=== PATIENT | male | born 1955 | race Caucasian/White ===

== ENCOUNTER 2020-01-01 14:16 | Observation (INO) | payer OTHER, SELFPAY ==
[2020-01-01] VITALS (30 sets, daily range): BP systolic 131–211; BP diastolic 82–109; PULSE 59–104; RESP 12–21; TEMP 36–37.2; O2SAT 93–100; BMI 33.6
--- NOTE | ~2020-01-01 | CT_ITS ---
EXAMINATION: CT chest abdomen pelvis wo con DATE: 01/01/2020 19:26 INDICATION: Epigastric abdominal pain. Chest pain. TECHNIQUE: Computed tomography (CT) of the chest, abdomen, and pelvis was performed without intraveno us contrast. Automated exposure control and iterative reconstruction technique were employed. The dos e-length product was 1341.71 mGy-cm. COMPARISON: None FINDINGS: CHEST CT: There is mild scarring at the lung apices. There is mild bronchiectasis and scarring in anterior segm ent right upper lobe. There is mild atelectasis bilaterally. No pleural effusion. The heart size is n ormal. There are coronary artery calcifications. No pericardial effusion. There is mild thoracic spon dylosis. ABDOMEN/PELVIS CT: There is diffuse hepatic steatosis. There are gallstones in the gallbladder. There is a gallstone in the cystic duct. The gallbladder is normal in size. There is mild fat stranding adjacent to the gallb ladder, consistent with acute cholecystitis. The common duct is dilated to 10 mm. There are calcifica tions in the pancreas, consistent with chronic pancreatitis. The spleen, adrenal glands, and right ki dney are normal. There are is a 2 mm stone in left kidney. There is diverticulosis of the colon witho ut evidence of diverticulitis. There are no dilated loops of bowel. The appendix is normal. There are no pathologically enlarged lymph nodes. There is no free intraperitoneal fluid. There is asymmetric fat in left inguinal canal that may be a small hernia. There is mild lumbar spondylosis. IMPRESSION: 1. Acute cholecystitis. 2. Mildly dilated common duct. Reviewed, dictated and finalized at location A.
--- NOTE | ~2020-01-01 | US_ITS ---
US right upper quadrant INDICATION: Epigastric pain PROCEDURE: Realtime right upper abdominal ultrasound. COMPARISON: No prior studies for comparison. FINDINGS: The pancreas is normal without focal mass or pancreatic ductal dilation. Hepatic steatosis . There is normal directional flow in the portal vein. There are gallstones with gallbladder sludge and pericholecystic fluid. Gallbladder wall is thickened measuring 4.4 mm. Common bile duct measures 7 mm. Positive sonographic Anders's sign. IMPRESSION: 1: Constellation of findings compatible with acute cholecystitis. 2: Hepatic steatosis. Reviewed, dictated and finalized at location B.
--- NOTE | ~2020-01-01 | XR_ITS ---
EXAMINATION: XR chest 2V DATE: 01/01/2020 14:40 INDICATION: Chest pain. TECHNIQUE: Frontal and lateral views of the chest were obtained. COMPARISON: None. FINDINGS: There is mild scarring at the lung apices. There are airspace opacities in lingula. No pleu ral effusion or pneumothorax. The heart size is normal. There is a prominent right paracardial fat pa d. IMPRESSION: 1. Airspace opacities in lingula, consistent with atelectasis versus pneumonia. 2. Mild scarring at the lung apices. Reviewed, dictated and finalized at location A.
--- NOTE | 2020-01-01 14:24 | ECG_ITS ---
Measurements Intervals [place] Rate: 77 P: 52 NV: 154 QRS: 101 QRSD: 94 T: 33 QT: 372 QTc: 422 Interpretive Statements SINUS RHYTHM RIGHT AXIS DEVIATION DELAYED PRECORDIAL R/S TRANSITION BASELINE ARTIFACT- I, III, AVR, AVL, AVF, V1-V5 BORDERLINE ECG Electronically Signed On 01-01-2020 15:44:43 CDT by Haresh Maza D.O.
[2020-01-01 14:39] LABS: Basophils Percent Auto 0.6 % (0.2-1.2); Eosinophils Absolute Auto 0.1 K/mm3 (0-0.3); Eosinophils Percent Auto 1.9 % (0-4.4); Hematocrit 48.6 % (42.0-52.0); Hemoglobin 15.9 g/dL (14.0-18.0); Immature Granulocyte Absolute 0.07 K/mm3 (0.00-0.031); Lymphocytes Absolute Auto 2.28 K/mm3 (0.9-3.2); Lymphocytes Percent Auto 33.8 % (18.3-44.2); Mean Corpuscular HGB Conc 32.7 g/dl (32-36); Mean Corpuscular Hemoglobin 29.4 pg (26-34); Mean Platelet Volume 11.8 fl (7.4-10.4); Monocytes Absolute Auto 0.9 K/mm3 (0.1-0.6); Monocytes Percent Auto 12.8 % (2.6-8.5); Neutrophils Absolute Auto 3.4 K/mm3 (1.3-6.7); Neutrophils Percent Auto 49.9 % (45.5-73.1); Platelet Count Result 144 k/mm3 (150-375); Red Cell Distribution Width 14.5 % (11.5-14.5); White Blood Count 6.7 K/mm3 (4.5-10.0)
[2020-01-01] MEDS: NITROGLYCERIN SL 0.4 MG TABLET SUBLINGUAL ×3 (14:40→17:36)
--- NOTE | 2020-01-01 14:44 | ED.CHESTPAIN ---
HPI - Chest Pain General Chief Complaint: Chest Pain Stated Complaint: cp Time Seen by Provider: 01/01/20 14:25 History of Present Illness HPI narrative: Patient is a 64-year-old male who presents the ER with central chest pain. Feels like a throbbing pressure the size of a softball in the center of his chest. It is increased since 10 AM when it began. No nausea/vomiting/shortness of breath. No diaphoresis. No previous coronary disease. Patient does have history of previous CVA as well as aneurysm clipping. He had a carotid endarterectomy as well. Stopped his Plavix 1 month ago I instructed from his physician. No aggravating or alleviating factors that he is noted for the chest pain. Unsure if there is no exertional component as he is chose not to get up and move around. Related Data Home Medications Medication Instructions Recorded Confirmed Aspirin Low Dose 01/01/20 [place]-3 Fish Oil 01/01/20 lisinopril-hydrochlorothiazide tablet 01/01/20 metformin mg 01/01/20 rosuvastatin mg 01/01/20 Allergies Allergy/AdvReac Type Severity Reaction Status Date / Time Kkjibbf-Gkh-Hvt Reductase AdvReac Cramping Verified 01/01/20 14:40 Inhibitor of the Muscles Review of Systems Review of Systems: All systems reviewed & are unremarkable except as noted in HPI and below Constitutional: Constitutional: Denies chills, Denies fever(s) and Denies weakness ENT: Denies nasal congestion and Denies sore throat Cardiovascular: Cardiovascular: Reports chest pain, Denies rapid heart rate and Denies radiating jaw, neck or arm pain Respiratory: Respiratory: Denies cough, Denies dyspnea and Denies wheezing Gastrointestinal: Gastrointestinal: Denies abdominal pain, Denies diarrhea, Denies nausea and Denies vomiting PMFSH Past Medical History Medical History (Updated 01/01/20 @ 18:30 by Erik Flores MD) Brain aneurysm CVA (cerebral vascular accident) Hypertension Surgical History Surgical History (Updated 01/01/20 @ 14:47 by Erik Flores MD) H/O carotid endarterectomy Social History Social History (Updated 01/01/20 @ 14:47 by Erik Flores MD) Smoking status: Former smoker Gender identity (if verbalized by the patient): Male Exam Narrative: Exam Narrative: GENERAL: Well-appearing, well-nourished, and in no acute distress. HEAD: Normocephalic, atraumatic. ENT: Mucous membranes moist. CHEST: Clear to auscultation. No respiratory distress. HEART: Regular rate and rhythm. Normal peripheral pulses. ABDOMEN: Soft, nontender, nondistended. EXTREMITIES: Normal range of motion. No edema. SKIN: Warm, dry, no rash. NEURO: Alert and oriented x3. PSYCH: Normal mood and affect. Course Course Emergency Course: Chest pain blood pressure improved with nitroglycerin x3. Admit to the hospitalist service. Vital Signs Vital signs: Vital Signs Pulse Rate 85 01/01/20 14:25 Respiratory Rate 18 01/01/20 14:25 Pulse Oximetry 99 01/01/20 14:25 Temperature 97.2 F L 01/01/20 17:15 Pulse Rate 68 01/01/20 17:15 Respiratory Rate 20 01/01/20 17:15 Blood Pressure 177/84 H 01/01/20 17:15 Pulse Oximetry 100 01/01/20 17:15 MDM - Chest Pain Lab Data Result diagrams: 01/01/20 14:29 01/01/20 14:29 Labs: Lab Results 01/01/20 01/01/20 01/01/20 Range/Units 14:29 14:29 14:29 WBC 6.7 (4.5-10.0) K/mm3 RBC 5.40 (4.6-6.20) M/mm3 Hgb 15.9 (14.0-18.0) g/dL Hct 48.6 (42.0-52.0) % MCV 90.0 (80-100) fl MCH 29.4 (26-34) pg MCHC 32.7 (32-36) g/dl RDW 14.5 (11.5-14.5) % Plt Count 144 L (150-375) k/mm3 MPV 11.8 H (7.4-10.4) fl Immature Gran % (Auto) 1.0 H (0-0.5) % Neut % (Auto) 49.9 (45.5-73.1) % Lymph % (Auto) 33.8 (18.3-44.2) % [place] % (Auto) 12.8 H (2.6-8.5) % Eos % (Auto) 1.9 (0-4.4) % Baso % (Auto) 0.6 (0.2-1.2) % Lymph # (Auto) 2.28 (0.9-3.2) K/mm3 [place] # (Auto)
[2020-01-01 14:50] LABS: Anion Gap 9 mmol/L (8-16); Blood Urea Nitrogen 13 mg/dL (9-20); Calcium 9.6 mg/dL (8.4-10.2); Carbon Dioxide 30 mmol/L (22-30); Chloride 98 mmol/L (98-107); Estimated CRCL calculation 82 ml/min; Estimated Glomerular Filt Rate > 60; Glucose 142 mg/dL (75-110); INR 0.9; Potassium 4.3 mmol/L (3.4-5.0); Prothrombin Time 12.3 Seconds (11.1-14.7); Sodium 137 mmol/L (137-145)
[2020-01-01 14:51] LABS: Partial Thromboplastin Time 24.7 SECONDS (22.3-36.8)
[2020-01-01 15:02] LABS: Troponin I < 0.012 ng/mL (0.000-0.034)
--- NOTE | 2020-01-01 15:30 | PC.NURSE ---
First nitro given 1440 chest pain went from 9 to a 5 1445 second nitro given, chest pain went from 5 to a 3 1450 third nitro given, chest pain about a 3, blood pressure improved
--- NOTE | 2020-01-01 16:52 | ADMGEN ---
This patient, Robert Virk, was admitted to IMU Room 211-01. Patient/family oriented to hospital policies and general routines including ID bracelet, bed and alarms, visiting hours, pain management, procedures, bathroom and other care routines, personal items, smoking policy, room service/diet, and visiting hours. Valuables list has been completed. Information on how to activate the Rapid Response Team has been discussed. Patient/Family are encouraged to report perceived risks to care and to ask questions if they do not understand what they are told or what they should do.
[2020-01-01] MEDS: MORPHINE SULFATE 4 MG/ML INJ IV PUSH (18:07)
[2020-01-01 18:33] LABS: Troponin I < 0.012 ng/mL (0.000-0.034)
--- NOTE | 2020-01-01 19:13 | PM.IMHP ---
H&P: HPI History of Present Illness Date/Time: 01/01/20 19:13 Chief complaint: chest pain Narrative: Robert Virk is a 64 year old male Who has a history of having cerebral aneurysm which 1 of the 3 has been repaired. The other 2 did not require any surgical intervention. The patient has also had a carotid endarterectomy and had a CVA. He also is diabetic and hypertensive. 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 They want to go somewhere local. The patient does have severe acid reflux and typically has pain midsternal whenever he has of bout of acid reflux but this was different today. He had a an area that was substernal discomfort but it went across his chest. The patient had not been belching and he tried to take some Tums because he thought that this might be acid reflux but that did not seem to help. He also took his Prilosec thinking that would help. But it did not. His chest pain started around 10:00 a.m. this morning. He also ate some food and thinking that it would help but it did not help. He has a localized centralized lower sternal chest pain that he stated did come across his chest on both sides. Did not radiate up his neck or down his arms. He was not short of breath. He did not have any fever chills or cough. He said his last cardiac catheterization was about 10 years ago and was clear. Patient cannot tolerate statins. He has muscle cramps his legs when he takes statin so he has not been taking it. Patient had no diaphoresis. He had been on Plavix but stopped taking it about 1 month ago. Patient's troponins are negative x2. Chest x-ray was read as airspace opacities in lingular consistent with atelectasis versus pneumonia. Mild scarring at the lung apex. Platelets are 144. Glucose was noted to be 142. Review of Systems Review of Systems: All systems reviewed & are unremarkable except as noted in HPI and below Constitutional: Constitutional: Reports as per HPI and Reports no additional constitutional complaints Eyes: Eyes: Reports as per HPI and Reports no additional eye complaints ENT: Reports system reviewed and no additional complaints, except as documented and Reports Normal hearing present Cardiovascular: Cardiovascular: Reports no additional cardiovascular complaints Respiratory: Respiratory: Reports no additional respiratory complaints and Reports no additional respiratory complaints Gastrointestinal: Gastrointestinal: Reports as per HPI and Reports no additional gastrointestinal complaints Musculoskeletal: Musculoskeletal: Reports no additional musculoskeletal complaints Integumentary/Breasts: Skin/Breast: Reports system reviewed and no additional complaints, except as docu and Reports as per HPI Neurologic: Reports system reviewed and no additional complaints, except as documented, Reports as per HPI and Reports Normal hearing present Psychiatric: Psychiatric: Reports no additional psychiatric complaints and Reports as per HPI Endocrine: Endocrine: Reports no additional endocrine complaints Hematologic/Lymphatic: Hematologic/Lymphatic: Reports no additional hematologic/lymphatic complaints Allergic/Immunologic: Allergic/Immunologic: Reports no additional allergic/immunologic complaints [facility] Past Medical History Medical History (Updated 01/01/20 @ 19:20 by Rafaela Felipe NP) Brain aneurysm x3 but only 1 needed surgical intervention that was performed at [place]. CVA (cerebral vascular accident) DM2 (diabetes mellitus, type 2) GERD with esophagitis Hyperlipidemia Hypertension Surgical History Surgical History (Updated 01/01/20 @ 19:20 by Rafaela Felipe NP) H/O carotid endarterectomy S/P aneurysm repair cerebral Family History Family History Mother Emphysema of lung Acute myocardial infarction Father Cancer Sibling Acute myocardial infarction brother Ca
[2020-01-01] MEDS: BELLADONNA ALK/PHENOB ELIX 10 ML, MAG HYDROX/ALUMINUM HYD/SIMETH 30 ML, LIDOCAINE HCL 2... PO (19:15)
[2020-01-01 20:52] LABS: Glucose Point of Care 123 (65-105)
[2020-01-01] MEDS: FAMOTIDINE 20 MG/2 ML VIAL IV PUSH (21:33)
[2020-01-01 21:45] LABS: Troponin I < 0.012 ng/mL (0.000-0.034)
[2020-01-02] VITALS (13 sets, daily range): BP systolic 124–154; BP diastolic 74–84; PULSE 65–118; RESP 16–20; TEMP 36.1–36.8; O2SAT 94–99
[2020-01-02 05:19] LABS: Basophils Absolute Auto 0.1 K/mm3 (0.0-0.1); Basophils Percent Auto 0.7 % (0.2-1.2); Eosinophils Absolute Auto 0.1 K/mm3 (0-0.3); Eosinophils Percent Auto 1.3 % (0-4.4); Hematocrit 46.2 % (42.0-52.0); Hemoglobin 15.4 g/dL (14.0-18.0); Immature Granulocyte Absolute 0.03 K/mm3 (0.00-0.031); Immature Granulocyte Percent A 0.4 % (0-0.5); Immature Platelet Fraction Pct 6.4 % (0.9-11.2); Lymphocytes Absolute Auto 1.58 K/mm3 (0.9-3.2); Lymphocytes Percent Auto 21.3 % (18.3-44.2); Mean Corpuscular HGB Conc 33.3 g/dl (32-36); Mean Corpuscular Hemoglobin 29.3 pg (26-34); Mean Platelet Volume 11.3 fl (7.4-10.4); Monocytes Absolute Auto 0.9 K/mm3 (0.1-0.6); Monocytes Percent Auto 12.3 % (2.6-8.5); Neutrophils Absolute Auto 4.7 K/mm3 (1.3-6.7); Platelet Count Result 135 k/mm3 (150-375); Red Blood Count 5.25 M/mm3 (4.6-6.20); Red Cell Distribution Width 13.9 % (11.5-14.5); White Blood Count 7.4 K/mm3 (4.5-10.0)
[2020-01-02 05:26] LABS: Hemoglobin A1C 6.5 % (<5.7)
[2020-01-02 05:33] LABS: Alanine Aminotransferase 77 U/L (4-50); Albumin Level 4.2 g/dL (3.5-5.1); Alkaline Phosphatase 54 U/L (38-126); Anion Gap 7 mmol/L (8-16); Aspartate Amino Transferase 47 U/L (17-59); Bilirubin,Total 0.6 mg/dL (0.2-1.3); Blood Urea Nitrogen 10 mg/dL (9-20); Calcium 9.4 mg/dL (8.4-10.2); Carbon Dioxide 31 mmol/L (22-30); Chloride 97 mmol/L (98-107); Estimated CRCL calculation 92 ml/min; Estimated Glomerular Filt Rate > 60; Glucose 134 mg/dL (75-110); Lipase 55 U/L (23-300); Magnesium 1.6 mg/dL (1.6-2.3); Potassium 4.2 mmol/L (3.4-5.0); Sodium 135 mmol/L (137-145)
[2020-01-02 07:26] LABS: Free T4 Free Thyroxine Reflex 0.91 ng/dL (0.78-2.19)
[2020-01-02] MEDS: lisinopriL 10 MG TABLET BY MOUTH (08:07)
[2020-01-02] MEDS: ASPIRIN 81 MG ENTERIC TABLET BY MOUTH (08:07)
[2020-01-02] MEDS: hydroCHLOROthiazide 12.5 MG CAPSULE BY MOUTH (08:07)
[2020-01-02] MEDS: FAMOTIDINE 20 MG/2 ML VIAL IV PUSH ×2 (08:07→21:12)
[2020-01-02 08:09] LABS: Total Triiodothyronine (T3) 1.03 NG/ML (0.97-1.69)
[2020-01-02 08:31] LABS: Glucose Point of Care 140 (65-105)
--- NOTE | 2020-01-02 11:09 | PM.CNCAR ---
Assessment and Plan Additional Plan this is a 64-year-old man without previous history of coronary disease but a known history of peripheral vascular disease. He also has hypertension and presents with low substernal to mid epigastric pain. This symptoms were present yesterday altogether for about 13 hours. In the face of his his troponin levels remain normal showing no evidence of acute myocardial injury. It seems therefore unlikely that these symptoms are indicative of an acute coronary syndrome. He does have interesting concerning findings on his abdominal ultrasound suggesting that he has evidence of cholecystitis. Presumably a surgical consultation is being considered. At this point I do not have any specific cardiac recommendations to make I do not think he needs an ischemia workup at this point Zeyad Graham MD [facility] History of Present Illness History of Present Illness Consult date/time: Date of service:01/02/20 11:09 Consult reason: chest pain Reason For Visit: chest pain Narrative: This is a 64-year-old man I am seeing at the request of the hospitalist because he was admitted last evening after being seen in the emergency room with some chest pain. The patient describes a low substernal to mid epigastric pain that he feels like a sense of pressure or a bubble in his epigastrium that began yesterday morning it was fairly mild when it began. He thought he was probably having symptoms of esophageal reflux which he says he is known to have and thought it might get better if he ate a meal. In rather when he ate a meal it seemed to aggravate the symptoms after a couple of hours and then he was discussing this with his and he decided he would come into the emergency room because there is a history of significant coronary disease in his mother and his brother who at a premature age of myocardial infarction before getting to the hospital. In the emergency room his electrocardiogram did not show any evidence of acute injury. His troponin levels were negative and he was admitted for observation and management. Altogether the pain lasted for about 13 hours before it faded away yesterday on its own. The patient's troponin levels are negative x3 sets. He offers no complaints currently and feels well. The patient is not known to have any coronary disease prior to this. He has undergone a coronary angiogram at [facility] he says it has been at least 6-7 years ago and he was told that that was normal at that time. He does have a history of peripheral as vascular disease having undergone a carotid endarterectomy several years ago. He also appears to have had a history of a CVA with a cerebral aneurysm that was treated at [facility] percutaneously in November of 2018. I do not have the details of those records available to me at the time of this dictation. In this setting he is being seen in consultation. He did have a abdominal ultrasound of the right upper quadrant this morning that is reported as showing a constellation of findings compatible with acute cholecystitis with evidence of multiple gallbladder stones and evidence of gallbladder inflammation. He states his physicians at [facility] have told him of gallbladder stones in the past but up until now they have been asymptomatic. He states the residual that he has from his CVA is difficult, slow speech. When he originally presented last year ago with his CVA he states he could not speak at all most of his speech has recovered but it is not normal. Review of Systems Constitutional: Constitutional: Reports no additional constitutional complaints Eyes: Eyes: Reports no additional eye complaints ENT: Reports system reviewed and no additional complaints, except as documented Cardiovascular: Cardiovascular: Reports as per HPI and Reports chest pain Respiratory: Respiratory: Reports no additional respiratory complaints Gastrointestinal: Gastrointestinal: Reports as per HPI and Repo
[2020-01-02 12:35] LABS: Glucose Point of Care 309 (65-105)
[2020-01-02] MEDS: INSULIN ASPART (*BKC) 100 UNITS/ML SUB-Q (12:56)
--- NOTE | 2020-01-02 16:15 | PM.CNGS ---
Assessment and Plan Assessment and plan (1) Acute calculous cholecystitis: Code(s): K80.00 - Calculus of gallbladder with acute cholecystitis without obstruction Status: Acute Assessment and Plan: I have reviewed the CT and discussed the findings with the patient. He has evidence of acute calculous cholecystitis. His symptoms are slightly improved today, but with his history of type 2 diabetes, he is at risk for developing more complicated gallbladder issues. Discussed proceeding with surgery during this hospitalization verses being discharged and planning surgery electively. Ultimately I would recommend laparoscopic cholecystectomy, possible open. The patient would wish to proceed during this hospitalization due to some mild ongoing pain and risk of recurrent attacks. Will plan to proceed with laparoscopic cholecystectomy tomorrow. He will be made NPO after midnight. I have discussed the procedure as well as risks, benefits, and alternatives. Questions were answered. (2) DM2 (diabetes mellitus, type 2): Code(s): E11.9 - Type 2 diabetes mellitus without complications Status: Chronic (3) Hypertension: Code(s): I10 - Essential (primary) hypertension Status: Chronic (4) Adult BMI 33.0-33.9 kg/sq m: Code(s): Z68.33 - Body mass index (BMI) 33.0-33.9, adult Status: Acute History of Present Illness Consult details Consult date: 01/02/20 Reason for consult: abdominal pain Requesting physician: Allyson Vogt MD Narrative: This is a 64-year-old man who presented to the emergency department yesterday with substernal and epigastric pain. He began having pain yesterday when he woke up around 10:00 a.m.. He thought that it might be related to acid reflux or indigestion and tried to eat something to help with this. He ate a [employer] sausage egg and cheese sandwich and pain continued to worsen. Two nights ago before the pain started, he had eaten sloppy Bam's and tater tots. He has never had pain like this before. He denied any fevers or chills and denied any change in bowel habits. A CT chest abdomen and pelvis was performed in the emergency department. This showed evidence of acute cholecystitis. He was admitted to rule out cardiac causes. He does have a history of peripheral vascular disease with a history of CVA and carotid artery stenosis. His troponin levels were normal and he showed no other abnormalities on telemetry. His blood pressure was significantly elevated at the time of admission but this has been treated. A gallbladder ultrasound was obtained this morning and this confirmed acute cholecystitis with cholelithiasis. His pain seemed to resolve by around 9:30 this morning. He still has some mild tenderness in the epigastric region but he states that this is nothing compared to how he felt yesterday. Review of Systems Review of Systems: All systems reviewed & are unremarkable except as noted in HPI and below Constitutional: Constitutional: Denies chills and Denies fever(s) Eyes: Eyes: Denies change in vision ENT: Denies hearing loss, Denies neck pain and Denies sore throat Cardiovascular: Cardiovascular: Denies chest pain and Denies dyspnea Respiratory: Respiratory: Denies cough, Denies dyspnea and Denies wheezing Gastrointestinal: Gastrointestinal: Reports as per HPI and Reports abdominal pain Genitourinary: Genitourinary: Denies hematuria and Denies dysuria Musculoskeletal: Musculoskeletal: Denies arthralgias, Denies joint swelling and Denies neck pain Allergic/Immunologic: Allergic/Immunologic: Denies wheezing [facility] Past Medical History Medical History (Updated 01/02/20 @ 16:25 by Ruslan Steele DO) Brain aneurysm x3 but only 1 needed surgical intervention that was performed at [place]. CVA (cerebral vascular accident) DM2 (diabetes mellitus, type 2) GERD with esophagitis Hyperlipidemia Hypertension Surgical History Surgical History (Updat
[2020-01-02 16:17] LABS: Glucose Point of Care 180 (65-105)
--- NOTE | 2020-01-02 18:13 | WPDANESEPP ---
Anes - Eval Pre Procedure Procedure: Operation Date: 01/03/20 12:00 Proposed Procedures p Laparoscopic Cholecystectomy - Ruslan Steele DO Date/Time: 01/02/20 18:13 Pre Op Diagnosis: Acute calculous cholecystitis Patient Data Age: 64 Gender: M Height: 5 ft 7 in Weight: 96.9 kg Last Vital Signs Temp 98 F 01/02/20 16:00 Pulse 105 H 01/02/20 16:00 Resp 16 01/02/20 16:00 BP 149/79 H 01/02/20 16:00 Pulse Ox 99 01/02/20 16:00 Allergies Allergy/AdvReac Type Severity Reaction Status Date / Time Pdezuyq-Iyp-Tzz Reductase AdvReac Cramping Verified 01/01/20 14:40 Inhibitor of the Muscles Home Medications Medication Instructions Recorded Confirmed Type Aspirin Low Dose 325 mg PO DAILY 01/01/20 01/01/20 History [place]-3 Fish Oil 300 mg PO DAILY 01/01/20 01/01/20 History Prilosec OTC 1 tablet PO PRN 01/01/20 History lisinopril-hydrochlorothiazide 1 tablet PO DAILY 01/01/20 01/01/20 History metformin 1,000 mg PO BID 01/01/20 01/01/20 History naproxen 500 mg PO PRN 01/01/20 History Laboratory Tests 01/01/20 01/01/20 01/01/20 17:45 20:31 20:35 WBC RBC Hgb Hct MCV MCH MCHC RDW Plt Count MPV Immature Gran % (Auto) Neut % (Auto) Lymph % (Auto) [place] % (Auto) Eos % (Auto) Baso % (Auto) Lymph # (Auto) [place] # (Auto) Eos # (Auto) Baso # (Auto) Abs Immat Gran (auto) Absolute Neuts (auto) Absolute Nucleated RBC Nucleated RBC % % Immature Plt Fraction Sodium Potassium Chloride Carbon Dioxide Anion Gap BUN Creatinine Estim Creat Clear Calc Estimated GFR Glucose POC Capillary Glucose 123 mg/dl H mg/dl (65-105) Hemoglobin A1c Calcium Magnesium Total Bilirubin AST ALT Alkaline Phosphatase Troponin I < 0.012 ng/mL ng/mL < 0.012 ng/mL ng/mL (0.000-0.034) (0.000-0.034) Total Protein Albumin Lipase TSH (Reflex) Free T4 Total T3 01/02/20 01/02/20 01/02/20 04:58 04:58 04:58 WBC 7.4 K/mm3 K/mm3 (4.5-10.0) RBC 5.25 M/mm3 M/mm3 (4.6-6.20) Hgb 15.4 g/dL g/dL (14.0-18.0) Hct 46.2 % % (42.0-52.0) MCV 88.0 fl fl (80-100) MCH 29.3 pg pg (26-34) MCHC 33.3 g/dl g/dl (32-36) RDW 13.9 % % (11.5-14.5) Plt Count 135 k/mm3 L k/mm3 (150-375) MPV 11.3 fl H fl (7.4-10.4) Immature Gran % (Auto) 0.4 % % (0-0.5) Neut % (Auto) 64.0 % % (45.5-73.1) Lymph % (Auto) 21.3 % % (18.3-44.2) [place] % (Auto) 12.3 % H % (2.6-8.5) Eos % (Auto) 1.3 % % (0-4.4) Baso % (Auto) 0.7 % % (0.2-1.2) Lymph # (Auto) 1.58 K/mm3 K/mm3 (0.9-3.2) [place] # (Auto) 0.9 K/mm3 H K/mm3 (0.1-0.6) Eos # (Auto) 0.1 K/mm3 K/mm3 (0-0.3) Baso # (Auto) 0.1 K/mm3 K/mm3 (0.0-0.1) Abs Immat Gran (auto) 0.03 K/mm3 K/mm3 (0.00-0.031) Absolute Neuts (auto) 4.7 K/mm3 K/mm3 (1.3-6.7) Absolute Nucleated RBC 0.0 K/mm3 K/mm3 (0.0-0.012) Nucleated RBC % 0.0 % % (0.0-0.2) % Immature Plt Fraction 6.4 % % (0.9-11.2) Sodium 135 mmol/L L mmol/L (137-145) Potassium 4.2 mmol/L mmol/L (3.4-5.0) Chloride 97 mmol/L L mmol/L (98-107) Carbon Dioxide 31 mmol/L H mmol/L (22-30) Anion Gap 7 mmol/L L mmol/L (8-16) BUN 10 m
--- NOTE | 2020-01-02 18:30 | PM.IMPN ---
Progress Note: A&P Assessment and Plan (1) Chest pain: Code(s): R07.9 - Chest pain, unspecified Status: Acute Assessment and Plan: troponins have been negative x2. His EKG was read as sinus rhythm. Patient stated his medical practitioners is in [place] but would allow a medical practitioners from here to see him. His midsternal discomfort. We have tried morphine and nitro and does not seem to relieve his discomfort has been constant since 10:00 a.m. this morning. Will try GI cocktail and we will do CT of the abdomen without contrast in the event that his troponin was elevated he would need to go to the research lab assistant I did now use any . Also do gallbladder ultrasound. And patient has a history of severe gastritis esophagitis and has taken a PPI on occasion. He tried Tums and a PPI and that did not help him. We will do a Pepcid IV. Continue with daily aspirin. 01/02/20 18:30 patient is 64-year-old male with history of vascular disease, cerebral aneurysm, and hypertension presented emergency department with a complaint chest pain epigastric patient had a 3 sets of cardiac enzymes which were negative, EKG there was no acute change, patient was seen by medical practitioners does not suspect acute coronary syndrome to further evaluate patient had abdominal ultrasound showed patient has acute cholecystitis patient is seen by surgery service and recommending cholecystectomy which is scheduled for tomorrow, his clinically stable still complains of epigastric pain but no nausea or vomiting fever, has any chest pain palpitation, his is present in room (2) DM2 (diabetes mellitus, type 2): Code(s): E11.9 - Type 2 diabetes mellitus without complications Status: Chronic Assessment and Plan: Hold his metformin for now sliding scale insulin and check A1c. (3) Hypertension: Code(s): I10 - Essential (primary) hypertension Status: Chronic Assessment and Plan: p.r.n. hydralazine. Continue with lisinopril and hydrochlorothiazide. The patient has had nitro patches and morphine and is only brought his blood pressure down Slightly. Patient could be having chest pain from hypertensive urgency. (4) GERD with esophagitis: Code(s): K21.0 - Gastro-esophageal reflux disease with esophagitis Status: Chronic Assessment and Plan: IV Pepcid after GI cocktail. (5) Hyperlipidemia: Code(s): E78.5 - Hyperlipidemia, unspecified Status: Chronic Assessment and Plan: The patient is intolerant to statins it causes him to have leg cramps. Subjective Date/time seen: 01/02/20 18:30 patient is 64-year-old male with history of vascular disease, cerebral aneurysm, and hypertension presented emergency department with a complaint chest pain epigastric patient had a 3 sets of cardiac enzymes which were negative, EKG there was no acute change, patient was seen by medical practitioners does not suspect acute coronary syndrome to further evaluate patient had abdominal ultrasound showed patient has acute cholecystitis patient is seen by surgery service and recommending cholecystectomy which is scheduled for tomorrow, his clinically stable still complains of epigastric pain but no nausea or vomiting fever, has any chest pain palpitation, his is present in room Review of Systems Review of Systems: All systems reviewed & are unremarkable except as noted in HPI and below Exam Narrative: Exam Narrative: moderately obese Const: General: no acute distress and uncomfortable HENMT: General nose exam: Normal nares present Eyes: General: appearance normal, both eyes and all related structures Sclera: sclerae normal Neck: Neck: supple Resp: Effort & Inspection: normal respiratory effort Auscultation: clear to auscultation bilaterally Cardio: Rate: regular rate Rhythm: regular rhythm GI: Auscultation: normal bowel sounds Other: patient is tender in epigastric right upper quadrant Skin: General ski
[2020-01-02 20:34] LABS: Glucose Point of Care 199 (65-105)
[2020-01-03] VITALS (17 sets, daily range): BP systolic 125–155; BP diastolic 57–95; PULSE 68–89; RESP 14–22; TEMP 35.9–36.7; O2SAT 91–99
[2020-01-03 04:54] LABS: Hematocrit 48.1 % (42.0-52.0); Hemoglobin 15.8 g/dL (14.0-18.0); Mean Corpuscular HGB Conc 32.8 g/dl (32-36); Mean Corpuscular Volume 88.4 fl (80-100); Mean Platelet Volume 11.5 fl (7.4-10.4); Platelet Count Result 144 k/mm3 (150-375); Red Blood Count 5.44 M/mm3 (4.6-6.20); Red Cell Distribution Width 14.2 % (11.5-14.5); White Blood Count 6.2 K/mm3 (4.5-10.0)
[2020-01-03 05:13] LABS: Alanine Aminotransferase 83 U/L (4-50); Albumin Level 4.3 g/dL (3.5-5.1); Alkaline Phosphatase 54 U/L (38-126); Anion Gap 9 mmol/L (8-16); Aspartate Amino Transferase 50 U/L (17-59); Bilirubin,Total 0.5 mg/dL (0.2-1.3); Blood Urea Nitrogen 16 mg/dL (9-20); CRP 3.6 mg/dL (<1.0); Calcium 9.3 mg/dL (8.4-10.2); Carbon Dioxide 29 mmol/L (22-30); Chloride 99 mmol/L (98-107); Estimated CRCL calculation 82 ml/min; Estimated Glomerular Filt Rate > 60; Glucose 143 mg/dL (75-110); Lipase 91 U/L (23-300); Potassium 4.2 mmol/L (3.4-5.0); Sodium 137 mmol/L (137-145)
[2020-01-03 08:31] LABS: Glucose Point of Care 129 (65-105)
[2020-01-03] MEDS: CHLORHEXIDINE GLUCONATE 4% SOL 120 ML BTL 1 APPLIC TOPICAL (08:54)
--- NOTE | 2020-01-03 12:27 | WPDANESEPPF ---
Anes - Initial Pre Proc Eval Procedure: Operation Date: 01/03/20 12:00 Proposed Procedures p Laparoscopic Cholecystectomy - Ruslan Steele DO Date/Time: 01/03/20 12:27 Surgeon: Allyson Vogt MD Pre Op Diagnosis: Acute calculous cholecystitis Patient Data Age: 64 Gender: M Height: 5 ft 7 in Weight: 94.3 kg Last Vital Signs Temp 96.7 F L 01/03/20 08:14 Pulse 73 01/03/20 10:00 Resp 22 H 01/03/20 08:14 BP 125/78 01/03/20 08:14 Pulse Ox 93 01/03/20 08:46 Allergies Allergy/AdvReac Type Severity Reaction Status Date / Time Dppjnpo-Ont-Upx Reductase AdvReac Cramping Verified 01/01/20 14:40 Inhibitor of the Muscles Home Medications Medication Instructions Recorded Confirmed Type Aspirin Low Dose 325 mg PO DAILY 01/01/20 01/01/20 History [place]-3 Fish Oil 300 mg PO DAILY 01/01/20 01/01/20 History Prilosec OTC 1 tablet PO PRN 01/01/20 History lisinopril-hydrochlorothiazide 1 tablet PO DAILY 01/01/20 01/01/20 History metformin 1,000 mg PO BID 01/01/20 01/01/20 History naproxen 500 mg PO PRN 01/01/20 History Laboratory Tests 01/02/20 01/02/20 01/02/20 11:50 15:41 20:27 WBC RBC Hgb Hct MCV MCH MCHC RDW Plt Count MPV Sodium Potassium Chloride Carbon Dioxide Anion Gap BUN Creatinine Estim Creat Clear Calc Estimated GFR Glucose POC Capillary Glucose 309 mg/dl H mg/dl 180 mg/dl H mg/dl 199 mg/dl H mg/dl (65-105) (65-105) (65-105) Calcium Total Bilirubin Direct Bilirubin AST ALT Alkaline Phosphatase C-Reactive Protein Total Protein Albumin Lipase Blood Type Antibody Screen 01/03/20 01/03/20 01/03/20 04:34 04:34 04:34 WBC 6.2 K/mm3 K/mm3 (4.5-10.0) RBC 5.44 M/mm3 M/mm3 (4.6-6.20) Hgb 15.8 g/dL g/dL (14.0-18.0) Hct 48.1 % % (42.0-52.0) MCV 88.4 fl fl (80-100) MCH 29.0 pg pg (26-34) MCHC 32.8 g/dl g/dl (32-36) RDW 14.2 % % (11.5-14.5) Plt Count 144 k/mm3 L k/mm3 (150-375) MPV 11.5 fl H fl (7.4-10.4) Sodium 137 mmol/L mmol/L (137-145) Potassium 4.2 mmol/L mmol/L (3.4-5.0) Chloride 99 mmol/L mmol/L (98-107) Carbon Dioxide 29 mmol/L mmol/L (22-30) Anion Gap 9 mmol/L mmol/L (8-16) BUN 16 mg/dL mg/dL (9-20) Creatinine 0.90 mg/dL mg/dL (0.7-1.3) Estim Creat Clear Calc 82 ml/min ml/min Estimated GFR > 60 (59 - ) Glucose 143 mg/dL H mg/dL (75-110) POC Capillary Glucose Calcium 9.3 mg/dL mg/dL (8.4-10.2) Total Bilirubin 0.5 mg/dL mg/dL (0.2-1.3) Direct Bilirubin 0.0 mg/dL mg/dL (0-0.3) AST 50 U/L U/L (17-59) ALT 83 U/L H U/L (4-50) Alkaline Phosphatase 54 U/L U/L (38-126) C-Reactive Protein 3.6 mg/dL H mg/dL (<1.0) Total Protein 7.0 g/dL g/dL (6.3-8.2) Albumin 4.3 g/dL g/dL (3.5-5.1) Lipase 91 U/L U/L (23-300) Blood Type A Positive Antibody Screen Negative 01/03/20 07:40 WBC RBC Hgb Hct MCV MCH MCHC RDW Plt Count MPV Sodium Potassium Chloride Carbon Dioxide Anion Gap BUN Creatinine Estim Creat Clear Calc Estimated GFR Glucose POC Capillary Glucose 129 mg/dl H mg/dl (65-105) Calcium Total Bilirubin Direct Bilirubin AST ALT
--- NOTE | 2020-01-03 13:06 | WPDHPUPDATE1 ---
History and Physical Update Update Date/Time: 01/03/20 13:06 History and Physical has been reviewed, including an updated exam of the patient. There are NO changes in the patient's condition. Risks, benefits, and alternatives have been discussed and questions answered. Patient agrees to proceed with procedure.
[2020-01-03 13:16] LABS: Glucose Point of Care 140 (65-105)
--- NOTE | 2020-01-03 13:16 | SUR.PREOP ---
1200 PT UPDATED ON SURGERY TIME DELAY. DENIES NEEDS AT THIS TIME.
[2020-01-03] MEDS: ceFAZolin 2 GM/D5W 50 ML 2 GM/50 ML BAG IVPB (13:32)
[2020-01-03] MEDS: BUPIVACAINE/EPINEPHRINE 0.5% 30 ML VIAL INFILTRATE (13:52)
[2020-01-03] MEDS: LACTATED RINGERS 1,000 ML 30 ML IV CONT ×2 (14:24)
--- NOTE | 2020-01-03 14:26 | PM.PROC ---
Procedure Note - Detailed Date of procedure: 01/03/20 Pre-op diagnosis: Acute calculous cholecystitis Post-op diagnosis: same Procedure performed: Laparoscopic Cholecystectomy Description of procedure: Procedure as well as risks, benefits, and alternatives were discussed with patient. Written consent was obtained and placed in chart prior to procedure. The patient was brought back to surgical suite. Patient was placed in supine position on operating table. Time-out was done to confirm patient and procedure. Patient was then intubated by the anesthesia department. Abdomen was prepped and draped in sterile fashion using chlorhexidine prep. 0.5% bupivacaine with epinephrine was infiltrated at each site of incision. A 5 millimeter incision was made near the umbilicus, and a 5 millimeter Optiview trocar was advanced through the abdominal layers under direct visualization. Once inside the abdominal cavity, carbon dioxide was insufflated to create a pneumoperitoneum. The camera was inserted and the abdomen was inspected. No immediate abnormalities were identified. The patient was placed in reverse Trendelenburg position and rotated slightly to the left. An 11 millimeter incision was made in the subxiphoid region, and an 11 millimeter trocar was inserted under direct visualization. Two 5 millimeter incisions were made in the right upper quadrant, and two 5 millimeter trocars were inserted under direct visualization. The gallbladder was identified and grasped at the fundus and retracted superiorly. It was then grasped at the infundibulum retracted laterally. Careful dissection around the neck of the gallbladder was performed using blunt dissection with a [place] grasper and hook electrocautery. The cystic duct was identified, and a window was created behind it. The cystic artery was also identified and a window was created behind it. The critical view of safety was identified, visualizing the cystic duct running directly into the neck of the gallbladder, and the cystic artery running directly into the wall of the gallbladder. A 5 millimeter clip biomass plant manager was then used to place 2 clips proximally and 1 clip distally on both the cystic duct and cystic artery. They were then both transected using endoscopic scissors. Once safely away from the preston hepatitis, the gallbladder was dissected free from the liver bed using hook electrocautery. Hemostasis was achieved along the way. The gallbladder was removed completely and then removed through the subxiphoid port. The liver bed was then inspected. Hemostasis appeared adequate, and our clips appeared secure. The area was gently irrigated with sterile saline. No other abnormalities were seen. The patient was flattened out in bed, and 1 final inspection was made around the abdominal cavity. The subxiphoid port was removed, and a Matt Sofia cone was used to approximate the fascia with an 0-Vicryl simple interrupted suture. The remaining ports were then removed under direct visualization, the camera was removed, and the pneumoperitoneum was released. The skin of the incisions was approximated using 4-0 Monocryl subcuticular sutures. Exofin glue was applied on top. The patient was then awakened from anesthesia, extubated, and transferred to recovery. Anesthesia: GETA and local (0.5% bupivicaine with epi) Surgeon: Ruslan Steele DO Estimated blood loss (mL): 5 Drains: No Packing: No Pathology: yes Complications: No immediate complications Condition: stable (Patient tolerated procedure well, and is currently resting comfortably in recovery.) Disposition: floor Findings: This is a 64-year-old man who presented to the emergency department with epigastric abdominal pain. Cardiac workup was negative for acute coronary syndrome. He had a CT which showed evidence of acute cholecystitis and gallbladder ultrasound confirmed this. Discussions were made with the patient about treatment options, and decision was mad
[2020-01-03 14:40] LABS: Glucose Point of Care 140 (65-105)
[2020-01-03 16:52] LABS: Glucose Point of Care 205 (65-105)
[2020-01-03] MEDS: INSULIN ASPART (*BKC) 100 UNITS/ML SUB-Q (17:06)
--- NOTE | 2020-01-03 17:34 | PM.DS ---
DS: Admitting Diagnosis Admitting Diagnosis Admitting Diagnosis: Acute calculous cholecystitis DS: Discharge Diagnosis Discharge Diagnosis (1) Chest pain: Code(s): R07.9 - Chest pain, unspecified Status: Acute Assessment and Plan: troponins have been negative x2. His EKG was read as sinus rhythm. Patient stated his manager center is in [place] but would allow a manager center from here to see him. His midsternal discomfort. We have tried morphine and nitro and does not seem to relieve his discomfort has been constant since 10:00 a.m. this morning. Will try GI cocktail and we will do CT of the abdomen without contrast in the event that his troponin was elevated he would need to go to the lab aide I did now use any . Also do gallbladder ultrasound. And patient has a history of severe gastritis esophagitis and has taken a PPI on occasion. He tried Tums and a PPI and that did not help him. We will do a Pepcid IV. Continue with daily aspirin. 01/02/20 18:30 patient is 64-year-old male with history of vascular disease, cerebral aneurysm, and hypertension presented emergency department with a complaint chest pain epigastric patient had a 3 sets of cardiac enzymes which were negative, EKG there was no acute change, patient was seen by manager center does not suspect acute coronary syndrome to further evaluate patient had abdominal ultrasound showed patient has acute cholecystitis patient is seen by surgery service and recommending cholecystectomy which is scheduled for tomorrow, his clinically stable still complains of epigastric pain but no nausea or vomiting fever, has any chest pain palpitation, his is present in room (2) DM2 (diabetes mellitus, type 2): Code(s): E11.9 - Type 2 diabetes mellitus without complications Status: Chronic Assessment and Plan: Hold his metformin for now sliding scale insulin and check A1c. (3) Hypertension: Code(s): I10 - Essential (primary) hypertension Status: Chronic Assessment and Plan: p.r.n. hydralazine. Continue with lisinopril and hydrochlorothiazide. The patient has had nitro patches and morphine and is only brought his blood pressure down Slightly. Patient could be having chest pain from hypertensive urgency. (4) GERD with esophagitis: Code(s): K21.0 - Gastro-esophageal reflux disease with esophagitis Status: Chronic Assessment and Plan: IV Pepcid after GI cocktail. (5) Hyperlipidemia: Code(s): E78.5 - Hyperlipidemia, unspecified Status: Chronic Assessment and Plan: The patient is intolerant to statins it causes him to have leg cramps. DS: Summary Hospital Course Reason for hospitalization: Chief complaint: chest pain Narrative: Robert Virk is a 64 year old male Who has a history of having cerebral aneurysm which 1 of the 3 has been repaired. The other 2 did not require any surgical intervention. The patient has also had a carotid endarterectomy and had a CVA. He also is diabetic and hypertensive. The patient has a manager center at [facility] but decided not to go to [facility]. They want to go somewhere local. The patient does have severe acid reflux and typically has pain midsternal whenever he has of bout of acid reflux but this was different today. He had a an area that was substernal discomfort but it went across his chest. The patient had not been belching and he tried to take some Tums because he thought that this might be acid reflux but that did not seem to help. He also took his Prilosec thinking that would help. But it did not. His chest pain started around 10:00 a.m. this morning. He also ate some food and thinking that it would help but it did not help. He has a localized centralized lower sternal chest pain that he stated did come across his chest on both sides. Did not radiate up his neck or down his arms. He was not short of breath. He did not have any fever
== END 2020-01-03 18:25 | disposition home or self-care (01) ==
LOC: ANHED 15:58 → ANHIMU 16:12
PROVIDERS: Nurse Practitioner; Surgery; Admitting Provider Family Medicine; Emergency Provider Emergency Medicine; PCP Family Medicine Sports Medicine; Visit Provider Family Medicine
PROC: 0FT44ZZ Resection of Gallbladder, Percutaneous Endoscopic Approach (ICD-10-PCS; CPT 47562; principal; 2020-01-03 12:00)
DX: K80.12 Calculus of gallbladder with acute and chronic cholecystitis without obstruction (principal); I10 Essential (primary) hypertension; E11.9 Type 2 diabetes mellitus without complications; K21.9 Gastro-esophageal reflux disease without esophagitis; E78.5 Hyperlipidemia, unspecified; Z86.73 Personal history of transient ischemic attack (TIA), and cerebral infarction without residual deficits
CPT/HCPCS: 47562; 36415; 71046; 71250; 74176; 76705; 80048; 80053; 80076; 83036; 83690; 83735; 84439; 84443; 84480; 84484; 85025; 85027; 85055; 85610; 85730; 86140; 86850; 86900; 86901; 88304; 93005; 96361; 96374; 96375; 99285; A9270; G0378; J0131; J0330; J0690; J1100; J1815; J2250; J2270; J2405; J2704; J2710; J3010; J7030; J7120

== ENCOUNTER 2024-01-26 00:18 | Day surgery (SDC) | payer MEDICARE, SELFPAY ==
[2024-01-06 11:29] VITALS: BMI 26.6
--- NOTE | 2024-01-26 09:28 | PM.HPGS ---
History of Present Illness History of Present Illness Consent: Risks, benefits, and alternatives have been discussed and questions answered. Patient agrees to proceed with procedure. Chief complaint: Dysphagia, Neoplasm screening Narrative: Robert Virk is a 68 year old male with gerd and dysphagia, last egd at 47 yo, last colonoscopy more than 10 years ago Review of Systems Review of Systems: All systems reviewed & are unremarkable except as noted in HPI and below PMFSH Past Medical History Medical History (Updated 01/26/24 @ 09:29 by Lobito Fowler MD) Adult BMI 33.0-33.9 kg/sq m Brain aneurysm x3 but only 1 needed surgical intervention that was performed at [place]. Chest pain Colon cancer screening CVA (cerebral vascular accident) DM2 (diabetes mellitus, type 2) GERD with esophagitis Hyperlipidemia Hypertension Surgical History Surgical History H/O carotid endarterectomy History of arthroscopy of right shoulder Hx laparoscopic cholecystectomy 01/03/2020 S/P aneurysm repair cerebral Family History Family History Mother Emphysema of lung Acute myocardial infarction Father Cancer Sibling Acute myocardial infarction brother Cancer another brother Social History Social History Social History: the patient lives with his Arabella who is the durable power tax attorney for healthcare. The patient desires to be a full code. He used to work at [employer] until he had a stroke and then he became disabled. Patient drinks maybe couple times a week he drinks beer maybe 5 or 6 beers when he does drink. He tried marijuana in the past but cannot tolerated. No illicit drugs. He used to smoke he quit several years ago. He has 2 children. Smoking packs per day: 2.5 Smoking cigarettes per day: 50.0 Years smoked: 43 Smoking pack-years: 107.50 Smoking status: Former smoker Tobacco type: cigarettes Smoking end date: 04/20/09 Alcohol intake: current Drinks per week: 15 Substance use: never Living arrangements: with family Gender identity (if verbalized by the patient): Male Spiritual care concerns: No Meds Home Medications and Allergies Home Medications Medication Instructions Recorded Confirmed Type lisinopril 10 1 tablet PO DAILY 01/01/20 01/26/24 History mg-hydrochlorothiazide 12.5 mg tablet metformin 1,000 mg tablet 1,000 mg PO BID 01/01/20 01/06/24 History aspirin 81 mg tablet,delayed 81 mg PO DAILY 01/06/24 01/06/24 History release cholecalciferol (vitamin D3) 125 125 mcg PO DAILY 01/06/24 01/06/24 History mcg (5,000 unit) tablet (Vitamin D3) cyanocobalamin (vitamin B-12) 500 500 mcg PO DAILY 01/06/24 01/06/24 History mcg tablet (B-12 DOTS) levothyroxine 75 mcg tablet 75 mcg PO DAILY 01/06/24 01/06/24 History magnesium 200 mg tablet 400 mg PO DAILY 01/06/24 01/06/24 History naproxen sodium 500 mg 500 mg PO DAILY PRN Pain 01/06/24 01/06/24 History tablet,extended release [id number]-thb-other [id number] 1 cap PO DAILY 01/06/24 01/06/24 History oil 350 mg- 400 mg capsule omeprazole magnesium 20 mg 20 mg PO DAILY 01/06/24 01/06/24 History tablet,delayed release (Prilosec OTC) Allergies Allergy/AdvReac Type Severity Reaction Status Date / Time Fnmrlyf-PWL-BxM Reductase AdvReac Cramping Verified 01/26/24 09:18 Inhibitor of the [Nnvriaf-Dgg-Myo Reductase Muscles Inhibitor] Exam Const: General: comfortable and no acute distress HENMT: Face/Nose/Sinus: Normal nares present Eyes: General: appearance normal, both eyes and all related structures Neck: Neck: no JVD Resp: Auscultation: clear to auscultation bilaterally Cardio: Rate: regular rate Rhythm: regular rhythm GI: Inspection: non-distended GI Palp: Yes S
[2024-01-26] MEDS: LACTATED RINGERS 1,000 ML 150 ML IV CONT (09:30)
[2024-01-26 09:33] VITALS: BP 137/98; PULSE 114; RESP 20; TEMP 36.1; O2SAT 97; BMI 25.8
--- NOTE | 2024-01-26 09:33 | WPDANESEPPF ---
Anes - Initial Pre Proc Eval Procedure: Operation Date: 01/26/24 10:30 Proposed Procedures p Esophagogastroduodenoscopy&Screen Colon - Lobito Fowler MD Date/Time: 01/26/24 09:33 Surgeon: Lobito Fowler MD Pre Op Diagnosis: Dysphagia, Neoplasm screening Patient Data Age: 68 Gender: M Height: 1.7 m Weight: 77.2 kg Allergies Allergy/AdvReac Type Severity Reaction Status Date / Time Adwrmlr-ZJK-CsA Reductase AdvReac Cramping Verified 01/26/24 09:18 Inhibitor of the [Synmvba-Mif-Ctr Reductase Muscles Inhibitor] Home Medications Medication Instructions Recorded Confirmed Type lisinopril 10 1 tablet PO DAILY 01/01/20 01/26/24 History mg-hydrochlorothiazide 12.5 mg tablet metformin 1,000 mg tablet 1,000 mg PO BID 01/01/20 01/06/24 History aspirin 81 mg tablet,delayed 81 mg PO DAILY 01/06/24 01/06/24 History release cholecalciferol (vitamin D3) 125 125 mcg PO DAILY 01/06/24 01/06/24 History mcg (5,000 unit) tablet (Vitamin D3) cyanocobalamin (vitamin B-12) 500 500 mcg PO DAILY 01/06/24 01/06/24 History mcg tablet (B-12 DOTS) levothyroxine 75 mcg tablet 75 mcg PO DAILY 01/06/24 01/06/24 History magnesium 200 mg tablet 400 mg PO DAILY 01/06/24 01/06/24 History naproxen sodium 500 mg 500 mg PO DAILY PRN Pain 01/06/24 01/06/24 History tablet,extended release [id number]-uhz-other [id number] 1 cap PO DAILY 01/06/24 01/06/24 History oil 350 mg- 400 mg capsule omeprazole magnesium 20 mg 20 mg PO DAILY 01/06/24 01/06/24 History tablet,delayed release (Prilosec OTC) Patient hx anesthesia problems: none Family hx anesthesia problems: none Results Review: All pre-operative results and documents have been reviewed as part of the pre-operative evaluation. COUNT INCLUDES THE [facility] Past Medical History Medical History (Updated 01/26/24 @ 09:29 by Lobito Fowler MD) Adult BMI 33.0-33.9 kg/sq m Brain aneurysm x3 but only 1 needed surgical intervention that was performed at [place]. Chest pain Colon cancer screening CVA (cerebral vascular accident) DM2 (diabetes mellitus, type 2) GERD with esophagitis Hyperlipidemia Hypertension Surgical History Surgical History H/O carotid endarterectomy History of arthroscopy of right shoulder Hx laparoscopic cholecystectomy 01/03/2020 S/P aneurysm repair cerebral Family History Family History Mother Emphysema of lung Acute myocardial infarction Father Cancer Sibling Acute myocardial infarction brother Cancer another brother Social History Social History Social History: the patient lives with his Arabella who is the durable power claims attorney for healthcare. The patient desires to be a full code. He used to work at [employer] until he had a stroke and then he became disabled. Patient drinks maybe couple times a week he drinks beer maybe 5 or 6 beers when he does drink. He tried marijuana in the past but cannot tolerated. No illicit drugs. He used to smoke he quit several years ago. He has 2 children. Smoking packs per day: 2.5 Smoking cigarettes per day: 50.0 Years smoked: 43 Smoking pack-years: 107.50 Smoking status: Former smoker Tobacco type: cigarettes Smoking end date: 04/20/09 Alcohol intake: current Drinks per week: 15 Substance use: never Living arrangements: with family Gender identity (if verbalized by the patient): Male Spiritual care concerns: No Anes - Eval Final PreProcedure Day of Procedure 01/26/24 09:33 Patient weight: normal Heart: regular rate and rhythm Lungs: clear to auscultation Airway: Mallampati scale class II Neurological: alert and oriented Last oral intake: >/= 8 hours ASA classification: III Emergent: no Anesthetic plan: proceed Anes
[2024-01-26 09:39] LABS: Glucose Point of Care 122 mg/dl (65-105)
--- NOTE | 2024-01-26 09:51 | SUR.OPER ---
EGD: [id number] COLON: [id number]
[2024-01-26 10:02] VITALS: BP 75/40; PULSE 79; RESP 20; O2SAT 92
[2024-01-26 10:12] VITALS: BP 84/50; PULSE 94; RESP 20; O2SAT 96
[2024-01-26 10:22] VITALS: BP 86/58; PULSE 93; RESP 20; O2SAT 97
[2024-01-26 10:32] VITALS: BP 117/75; PULSE 87; RESP 18; O2SAT 97
== END 2024-01-26 10:45 | disposition home or self-care (01) ==
PROVIDERS: PCP Family Medicine; Referring Provider Nurse Practitioner; Visit Provider Internal Medicine Gastroenterology
PROC: 0DJ08ZZ Inspection of Upper Intestinal Tract, Via Natural or Artificial Opening Endoscopic (ICD-10-PCS; CPT 43235; principal; 2024-01-26 10:30)
DX: Z12.11 Encounter for screening for malignant neoplasm of colon (principal); K64.8 Other hemorrhoids; K21.00 Gastro-esophageal reflux disease with esophagitis, without bleeding; K31.9 Disease of stomach and duodenum, unspecified; I10 Essential (primary) hypertension; E78.5 Hyperlipidemia, unspecified; E11.9 Type 2 diabetes mellitus without complications; I67.1 Cerebral aneurysm, nonruptured; Z79.84 Long term (current) use of oral hypoglycemic drugs; Z79.82 Long term (current) use of aspirin; Z79.1 Long term (current) use of non-steroidal anti-inflammatories (NSAID); Z98.890 Other specified postprocedural states; Z90.49 Acquired absence of other specified parts of digestive tract; Z87.891 Personal history of nicotine dependence; Z86.79 Personal history of other diseases of the circulatory system; Z86.73 Personal history of transient ischemic attack (TIA), and cerebral infarction without residual deficits; Z80.9 Family history of malignant neoplasm, unspecified; Z82.49 Family history of ischemic heart disease and other diseases of the circulatory system
CPT/HCPCS: 43239; G0105; 82948; 88305; J2003; J2371; J2704; J7120

== ENCOUNTER 2024-02-10 15:53 | Outpatient (CLI) | payer MEDICARE, SELFPAY ==
[2024-02-10 16:28] LABS: Basophils Percent Auto 0.5 % (0.2-1.2); Eosinophils Absolute Auto 0.2 K/mm3 (0-0.3); Hematocrit 45.8 % (42.0-52.0); Hemoglobin 15.1 g/dL (14.0-18.0); Immature Granulocyte Absolute 0.01 K/mm3 (0.00-0.031); Immature Granulocyte Percent A 0.2 % (0-0.5); Immature Platelet Fraction Pct 7.4 % (0.9-11.2); Lymphocytes Absolute Auto 1.84 K/mm3 (0.9-3.2); Lymphocytes Percent Auto 32.8 % (18.3-44.2); Mean Corpuscular Hemoglobin 30.3 pg (26-34); Mean Corpuscular Volume 91.8 fl (80-100); Mean Platelet Volume 10.9 fl (7.4-10.4); Monocytes Absolute Auto 0.6 K/mm3 (0.1-0.6); Monocytes Percent Auto 9.8 % (2.6-8.5); Neutrophils Percent Auto 53.7 % (45.5-73.1); Platelet Count Result 125 k/mm3 (150-375); Red Blood Count 4.99 M/mm3 (4.6-6.20); Red Cell Distribution Width 13.3 % (11.5-14.5); White Blood Count 5.6 K/mm3 (4.5-10.0)
[2024-02-10 19:30] LABS: Iron 135 ug/dL (49-181)
[2024-02-10 19:39] LABS: Percent Iron Saturation 39 % (20-50)
[2024-02-10 19:49] LABS: Alanine Aminotransferase 26 U/L (6-50); Albumin Level 4.9 g/dL (3.5-5.1); Alkaline Phosphatase 55 U/L (38-126); Anion Gap 9 mmol/L (4-12); Aspartate Amino Transferase 23 U/L (17-59); Bilirubin,Total 0.4 mg/dL (0.2-1.3); Blood Urea Nitrogen 15 mg/dL (9-20); Calcium 10.1 mg/dL (8.4-10.2); Carbon Dioxide 30 mmol/L (22-30); Chloride 100 mmol/L (98-107); Estimated Glomerular Filt Rate > 60; Glucose 181 mg/dL (65-110); Potassium 4.1 mmol/L (3.4-5.0); Sodium 139 mmol/L (137-145)
[2024-02-10 21:13] LABS: Folic Acid 8.9 ng/mL (2.76->20)
[2024-02-16 15:09] LABS: Soluble Transferrin Receptor 0.83 mg/L (0.76-1.76)
[2024-02-16 22:23] LABS: Methylmalonic Acid 142 nmol/L (69-390)
[2024-02-16 23:03] LABS: Platelet Antibody, Direct NEGATIVE (NEGATIVE)
== END 2024-02-10 15:54 | disposition home or self-care (01) ==
PROVIDERS: PCP Family Medicine; Visit Provider Internal Medicine Hematology & Oncology
DX: D69.59 Other secondary thrombocytopenia (principal)
CPT/HCPCS: 36415; 80053; 82607; 82728; 82746; 83540; 83550; 83921; 84238; 85025; 85055; 86023

== ENCOUNTER 2024-11-23 09:15 | Outpatient (CLI) | payer MEDICARE, SELFPAY ==
--- OUTSIDE RECORDS SUMMARY | 2024-11-23 09:38 | XMS_ITS | Clinical Summary ---
Author Organization [address] Address Pending sale to [facility] [place] [address] Care Team Providers Care Director [employer] Name Role Phone Talib Gaytan MD Primary Care Provider [phone] Allergies Active Allergy Reactions Criticality Noted Date Comments Bpzgvlv-Ylb-Owb Reductase Inhibitors Fatigue Low 11/26/2021 Medications acetaminophen (TYLENOL) 325 mg tabletIndicati ons:Fever Take 2 tablets (650 mg total) by mouth every 4 (four) hours as needed for pain 12/06/19 Active Additional Information Patient taking differently: 500 mgoral Every 4 hours PRN, pain, Indications: Fever, Informant: Spouse/Significant Other, Reported on 03/24/2019 aspirin 325 mg tablet Take 1 tablet (325 mg total) by mouth daily 30 tablet 1 12/06/19 Active Additional Information Patient taking differently:325 mg oralEvery morning, Indications: Cerebral Thromboembolism Prevention, Informant: Self, Reported on 03/24/2019 naproxen (NAPROSYN) 500 mg tabletIndicati ons:Pain Take 500 mg by mouth 2 (two) times a day as needed 01/07/20 Active blood glucose diagnostic (ONETOUCH VERIO) strip daily Active lisinopril-hyd roCHLOROthiazi de (ZESTORETIC) 10-12.5 mg per tablet every morning Active sjhty-7f-nub-e pa-fish oil 300-1,000 mg capsuleIndicat ions:otc Take 300 mg by mouth every morning Activ e omeprazole (PriLOSEC) 20 mg capsuleIndicat ions:Treatment of Non-Bleeding Gastric Disorder Take 20 mg by mouth daily as needed Active NON FORMULARY, FOR INPATIENT USE,Indication s:pancho's leg cramp medicine Take 1 tablet by mouth daily as needed Active metFORMIN (GLUCOPHAGE) 1,000 mg tabletIndicati ons:type 2 diabetes mellitus Take 1 tablet (1,000 mg total) by mouth 2 (two) times a day 03/28/20 19 Active Active Problems Problem Noted Date Diagnosed Date Obesity 02/09/2019 Hyperlipidemia 02/09/2019 Gastroesophageal reflux disease 02/09/2019 Essential hypertension 02/09/2019 Diabetes mellitus 02/09/2019 Benign prostatic hyperplasia 02/09/2019 Carotid stenosis, left 01/21/2019 Cerebral aneurysm 01/21/2019 Echocardiogram findings abnormal, without diagno sis 12/03/2018 Assessment & Plan (12/03/2018 4:55 PM CDT): -the increased echodensity in the RV free wall looks consistent with intrapericardial fat -he has no concerning cardiac history nor any concerning family history of unexplained cardiac -thus, recommend no further workup for this incidental finding -he is fine to proceed with any surgeries as needed from a cardiac perspective 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/02/2018 Cerebrovascular accident (CV A) due to stenosis of left carotid artery 12/01/2018 Overview (12/03/2018): Added automatically from request for surgery [id number] Surgical History Surgery Date Site/Laterality Comments SHOULDER SURGERY Right rotator cuff repair ANGIO SELECTIVE CAROTID GALLERY DIRECTOR LEFT 12/03/2018 Left CAROTID ENARTERECTOMYY 11/18/2018 - 12/18/2018 Left ANGIO SELECTIVE CAROTID GALLERY DIRECTOR RIGHT 11/16/2019 Right ANGIO SELECTIVE CAROTID GALLERY DIRECTOR RIGHT 10/15/2020 Right Medical History Medical History Date Comments Diabetes mellitus (HCC) Hypertension Stroke (HCC) Back pain Carotid stenosis Type 2 diabetes mellitus Cerebral aneurysm Family History Medical History Relation Name Comments Heart attack Brother Anesthesia problems Neg Hx Relation Name Status Comments Brother Social History Tobacco Use Types Packs/Day Years Used Date Smoking Tobacco: Former Cigarettes 2 30 1 978 - 2007 Smokeless Tobacco: Never Alcohol Use Standard Drinks/Week Comments Yes 0 (1 standard drink = 0.6 oz pur e alcohol) social PHQ-2 Answer Date Recorded PHQ-2 Score 0 12/10/2018 Personal Safety Answer Date Recorded Getting School Help Needed Not on file 06/14 Sex and Gender Information Value Date Recorded Sex Assigned at Not on file Legal Sex Male 7:21 PM SOFTWARE SALES CONSULTANT Gender Identity Not on file Sexual Orientation Not on file Obstetrics History Last Filed Vital Signs Vital Sign Reading Time Taken Comments Blood Pressure 125/73 10/15/2020 9:35 AM CDT Pulse 80 10/15/2020 9:35 AM CDT Temperature 36.6 C (97.8 F) 10/15/2020 7:21 AM CDT Respiratory Rate 16 10/15/2020 8:50 AM CDT Oxygen Saturation 91% 10/15/2020 9:35 AM CDT Inhaled Oxygen Concentration - - Weight 91.6 kg (202 lb) 10/15/2020 7:21 AM CDT Height 170.2 cm (5' 7) 10/15/2020 7:21 AM CDT Body Mass Index 31.64 10/15/2020 7:21 AM CDT Plan of Treatment Health Maintenance Due Date Last Done Comments Albumin Creatinine Ratio, Urine 1957 Colon Cancer Screening-Colonoscopy 1957 Hepatitis C Screening 1957 Prostate Cancer Screening-PSA 1957 eGFR 1957 Dilated Eye Exam 1957 Foot Exam 1957 DTaP/Tdap/Td Vaccine (1 - Tdap) 1968 Hepatitis B Screening 1975 Pneumococcal vaccine 65+ (1 of 2 - PCV) 1976 Zoster Vaccine (1 of 2) 2007 Hemoglobin A1C 09/23/2019 03/24/2019, 12/01/2018 Depression Screening 12/02/2019 12/01/2018, 12/02/19 19 Lipid Panel 12/02/2019 12/01/2018 Fall Risk Assessment 10/15/2021 10/15/2020 Abdominal Aortic Aneurysm (AAA) Screen 2022 Well Visit 65+ 2022 Influenza Vaccine (#1) 2024 Medical Devices Implanted Type Area Cyber Crime Investigator Device Identifier Shelf Expiration Date Model / Serial / Lot [employer] [id number] Device Closure Angio-Seal Vip Bondek-Plus Polyglyd L70 Cm Od6 Fr Odsec.035 In Vascular - [id number] Implanted:Qty: 1 on 12/03/2018 at [facility] [employer]ig [employer] [id number] / / Integra [employer] Malia [id number] Sundt 3mm 4mm 10cm Internal Loop Soft Spring Reinforce Carotid - [id number] Implanted:Qty: 1 on 12/04/2018 by Eitan Ramirez MD at [facility] Left: Neck Datama Alma Johns Malia 12/18/2020 [id number] / / Medtronic Inc [id number] Pipeline Flex 4.75mm 16mm 48 Strand Braid Mesh Uniform Latex Free - [id number] Implanted:Qty: 1 on 03/25/2019 at [facility] Med[employer] [id number] / / Int[email or web address] [id number] Device Closure Angio-Seal Vip Bondek-Plus Polyglyd L70 Cm Od6 Fr Odsec.035 In Vascular - [id number] Implanted:Qty: 1 on 03/25/2019 at [facility] [employer] 10/18/2019 [id number] / / [id number] Explanted Type Area Cyber Crime Investigator Device Identifier Shelf Expiration Date Model / Serial / Lot HubCast [id number] Yasargil 10.3mm Permanent Mri Safe Nonferromagnetic Spring Latex Free - [id number] Explanted:Qty: 1 on 12/04/2018 at [facility] HubCast [id number] / / Procedures Procedure Name Priority Date/Time Associated Diagnosis Comments CT ABDOMEN PELVIS W CONTRAST ED 04/01/2019 10:32 AM SOFTWARE SALES CONSULTANT POCT HEMOGLOBIN A1C Routine 03/24/2019 1 0:39 AM SOFTWARE SALES CONSULTANT LIPID PANEL Routine 12/01/2018 11:48 PM CDT from Last 3 Months or Most Recently Relevant to Health Maintenance Results * CT Abdomen Pelvis W Contrast (04/01/2019 10:32 AM SOFTWARE SALES CONSULTANT) Anatomical Region Laterality Modality Body N/A Computed Tomogra phy 04/01/2019 11:2 6 AM SOFTWARE SALES CONSULTANT Impressions 04/01/2019 11:33 AM SOFTWARE SALES CONSULTANT 1. Small obstructing stone at the left ureterovesicular junction with mild upstream left hydroureteronephrosis. 2. Incidental nonobstructive choledocholithiasis, likely unrelated to patient's symptoms. 3. Diffuse hepatic steatosis with findings suggestive of early fibrosis without overt cirrhosis. These findings be further evaluated with elastography or biopsy on an outpatient basis. Dictated by: Ino Krueger M.D. The radiology attending physician has personally reviewed this study, and had reviewed and/or edited this written report and agrees with it. Electronically signed by: Thierno Dugan M.D. Narrative 04/01/2019 11:33 AM SOFTWARE SALES CONSULTANT EXAMINATION: Computed tomography of the abdomen and pelvis with intravenous contrast HISTORY: 64-year-old male with new onset chest and lower back pain. TECHNIQUE: Transaxial computed tomographic images of the abdomen and pelvis were obtained with intravenous contrast according to the standard protocol after the uneventful administration of 100 mL Opti-Ray 350 intravenous contrast. COMPARISON: None available FINDINGS: The heart is upper limits of normal in size. Coronary artery atherosclerosis. Marked hepatic steatosis. Periportal widening and mild caudate hypertrophy consistent with early fibrosis. Main portal vein is patent. Gallstones in gallbladder and a small non-obstructing gallstone in common bile duct. No additional calcified stones are seen in the common duct. Minimal biliary ductal dilation. No pancreatic ductal dilation. Pancreas is normal. Spleen is normal in size without focal lesions. Small stone at the left ureterovesicular junction with mild left hydroureteronephrosis. Adrenal glands are normal. Bladder is well-distended. Prostate is normal. Large and small bowel are normal in course and caliber. Appendix is normal. Severe atherosclerosis of the abdominal aorta without aneurysm. No mesenteric, retroperitoneal, pelvic, or inguinal lymphadenopathy. No suspicious osseous or soft tissue lesions. Small amount of stranding in the right groin from recent catheterization. Procedure Note Thierno Dugan MD - 04/01/2019 EXAMINATION: Computed tomography of the abdomen and pelvis with intravenous contrast HISTORY: 64-year-old male with new onset chest and lower back pain. TECHNIQUE: Transaxial computed tomographic images of the abdomen and pelvis were obtained with intravenous contrast according to the standard protocol after the uneventful administration of 100 mL Opti-Ray 350 intravenous contrast. COMPARISON: None available FINDINGS: The heart is upper limits of normal in size. Coronary artery atherosclerosis. Marked hepatic steatosis. Periportal widening and mild caudate hypertrophy consistent with early fibrosis. Main portal vein is patent. Gallstones in gallbladder and a small non-obstructing gallstone in common bile duct. No additional calcified stones are seen in the common duct. Minimal biliary ductal dilation. No pancreatic ductal dilation. Pancreas is normal. Spleen is normal in size without focal lesions. Small stone at the left ureterovesicular junction with mild left hydroureteronephrosis. Adrenal glands are normal. Bladder is well-distended. Prostate is normal. Large and small bowel are normal in course and caliber. Appendix is normal. Severe atherosclerosis of the abdominal aorta without aneurysm. No mesenteric, retroperitoneal, pelvic, or inguinal lymphadenopathy. No suspicious osseous or soft tissue lesions. Small amount of stranding in the right groin from recent catheterization. IMPRESSION: 1. Small obstructing stone at the left ureterovesicular junction with mild upstream left hydroureteronephrosis. 2. Incidental nonobstructive choledocholithiasis, likely unrelated to patient's symptoms. 3. Diffuse hepatic steatosis with findings suggestive of early fibrosis without overt cirrhosis. These findings be further evaluated with elastography or biopsy on an outpatient basis. Dictated by: Ino Krueger M.D. The radiology attending physician has personally reviewed this study, and had reviewed and/or edited this written report and agrees with it. Electronically signed by: Thierno Dugan M.D. Dallas Ornelas MD IM CT PROCEDURES Final R esult * (ABNORMAL) POCT hemoglobin A1c (03/24/2019 10:39 AM SOFTWARE SALES CONSULTANT) Hgb A1C, POC 7.1(H) 4.0 - 6.0 % [facility] Est Average Gluc POC 157 mg/dL [facility] Comment: The ADA recommends reporting an estimated Average Glucose (eAG) with all Hemoglobin A1c results using the equation derived from a study of 507 normal and diabetic adults. Minority populations were underrepresented and children were not included. (Diabetes Care 31:1466-1414, 2008). The eAG is not equivalent to a fasting glucose. Blood specimen (specimen) 03/24/2019 10:39 AM SOFTWARE SALES CONSULTANT 03/24/2019 10:39 AM SOFTWARE SALES CONSULTANT Jeevan Colin MD POINT OF CARE TEST OR DERABLES Final Result [facility] [place] [address] * (ABNORMAL) Lipid panel (12/01/2018 11:48 PM CDT) Cholesterol 218(H) 30 - 199 mg/dL [facility] Comment: Interpretive Data Ages < or = 19 years Acceptable: <170 mg/dL Borderline high: 170-199 mg/dL High: >or= 200 mg/dL Ages > or = 20 years Desirable: <200 mg/dL Borderline high: 200-239 mg/dL High: >or= 240 mg/dL Literature References: 1. Expert Panel on Integrated Guidelines for Cardiovascular Health and Risk Reduction in Children and Adolescents. Pediatrics 2011;128:S213 2. NCEP Expert Panel. Circulation 2004;110:227 Current Interpretive Data was last revised on 2017. Triglycerides 85 <=149 mg/dL [facility] Comment: Interpretive Data Ages < or = 9 years Acceptable: <75 mg/dL Borderline high: 75-99 mg/dL High: >or= 100 mg/dL Ages 10 to 20 years Acceptable: <90 mg/dL Borderline high: 90-129 mg/dL High: >or= 130 mg/dL Ages > or = 20 years Desirable: <150 mg/dL Borderline high: 150-199 mg/dL High: 200-499 mg/dL Very high: >or= 499 mg/dL Literature References: 1. Expert Panel on Integrated Guidelines for Cardiovascular Health and Risk Reduction in Children and Adolescents. Pediatrics 2011;128:S213 2. NCEP Expert Panel. Circulation 2004;110:227 Current Interpretive Data was last revised on 2017. HDL 60 >=40 mg/dL [facility] Comment: Interpretive Data Ages < or = 19 years Acceptable: >45 mg/dL Borderline low: 40-45 mg/dL Low: <40 mg/dL Ages > or = 20 years Desirable: >or= 60 mg/dL Low: <40 mg/dL Literature References: 1. Expert Panel on Integrated Guidelines for Cardiovascular Health and Risk Reduction in Children and Adolescents. Pediatrics 2011;128:S213 2. NCEP Expert Panel. Circulation 2004;110:227 Current Interpretive Data was last revised on 2017. LDL, calculated 141(H) <=129 mg/dL [facility] Comment: Interpretive Data Ages < or = 19 years Acceptable: <110 mg/dL Borderline high: 110-129 mg/dL High: >or= 130 mg/dL Ages > or = 20 years Optimal: <100 mg/dL Near optimal: 100-129 mg/dL Borderline high: 130-159 mg/dL High: >160 mg/dL Literature References: 1. Expert Panel on Integrated Guidelines for Cardiovascular Health and Risk Reduction in Children and Adolescents. Pediatrics 2011;128:S213 2. NCEP Expert Panel. Circulation 2004;110:227 Current Interpretive Data was last revised on 2017. Non-HDL Cholesterol 158 mg/dL [facility] Comment: Interpretive Data Ages < or = 19 years Acceptable: <120 mg/dL Borderline high: 120-144 mg/dL High: >145 mg/dL Ages > or = 20 years When triglycerides are >200 mg/dL, Non-HDL cholesterol is a secondary target of therapy with treatment goals that are 30 mg/dL greater than the LDL cholesterol target. Literature References: 1. Expert Panel on Integrated Guidelines for Cardiovascular Health and Risk Reduction in Children and Adolescents. Pediatrics 2011;128:S213 2. NCEP Expert Panel. Circulation 2004;110:227 Current Interpretive Data was last revised on 2017. Chol/HDL ratio 4 [facility] Blood specimen (specimen) 12/01/2018 11:48 PM CDT 12/02/2018 12:22 AM CDT us Talib Stephens MD LAB BLOOD ORDERABLES Final Result [facility] Department [place] [address] from Last 3 Months or Most Recently Relevant to Health Maintenance Insurance [employer] [place] PREFERRED UHC MEDICARE ADVANTAGE UHC MEDICARE ADVANTAGE Advance Directives For more information, please contact: [phone] Documents on File Type Date Recorded Patient Home Manager Expl anation ADVANCE DIRECTIVE 03/24/2019 12:53 PM Macie r of [employer] * Full Code (Latest Code Status on File) Date Activated Date Inactivated Comments 10/15/2020 9:37 AM 10/15/2020 1:48 PM * Full Code Date Activated Date Inactivated Comments 03/25/2019 2:35 PM 03/26/2019 2:33 PM * Full Code Date Activated Date Inactivated Comments 12/04/2018 3:58 PM 12/05/2018 9:56 PM * Full Code Date Activated Date Inactivated Comments 12/01/2018 4:16 PM 12/04/2018 3:58 PM Care Teams Director Alliance Marketing Relationship Specialty Start Date End Date Talib Gaytan MD [address] [place] [address] PCP - General 11/10/19
--- OUTSIDE RECORDS SUMMARY | 2024-11-23 09:38 | XMS_ITS | Clinical Summary ---
Author Organization [facility] Karen Scott Address [address] [address] Care Team Providers Care Map Editor Name Role Phone Talib Gaytan MD Primary Care Provider [phone] Allergies Active Allergy Reactions Criticality Noted Date Comments Zkqhgpt-Htb-Hdn Reductase Inhibitors Other (See Comments) Low 11/26/2021 Fatigue lethargy Medications levothyroxine 75 mcg tablet Take 75 mcg by mouth daily. 12/15/2023 Active lisinopril-hydr oCHLOROthiazide (ZESTORETIC) 10-12.5 mg tablet Take 1 Tablet by mouth daily. Active metFORMIN (GLUCOPHAGE) 1,000 mg tablet Take 1,000 mg by mouth 2 times daily with meals. 12/19/2023 Active naproxen (NAPROSYN) 500 mg tablet Take 500 mg by mouth 2 times daily with meals. 12/15/2023 Active omeprazole (PriLOSEC) 20 mg Capsule, Delayed Release(E.C.) Take 20 mg by mouth daily. Active ergocalciferol (VITAMIN D2) 50,000 unit capsule Take 50,000 Units by mouth daily. Active utxav-7-QFG-EPA -fish oil (Fish OiL) 1,000 mg Capsule Take 1 Capsule by mouth daily. Active Magnesium Oxide 420 mg Tablet Take by mouth. Active POTASSIUM GLUCONATE ORAL Take 650 mg by mouth daily. Active Active Problems No known active problems Family History Medical History Relation Name Comments Heart Disease Brother 1 Prostate Cancer Brother 2 Heart Disease Brother 3 Prostate Cancer Brother 4 No Known Problems Brother 5 Bone Cancer Father Prostate Cancer Father Heart Disease Mother Diabetes Sister No Known Problems Son 1 No Known Problems Son 2 Relation Name Status Comments Brother 1 Brother 2 Brother 3 Alive Brother 4 Alive Brother 5 Alive Father Mother Sister Alive Son 1 Alive Son 2 Alive Social History Tobacco Use Types Packs/Day Years Used Date Smoking Tobacco: Former Cigarettes 2.5 45 Q uit: 02/09/2009 Tobacco Cessation:Counseling Given: Not Answered Alcohol Use Standard Drinks/Week Comments Yes 0 (1 standard drink = 0.6 oz pur e alcohol) occasionally Sex and Gender Information Value Date Recorded Sex Assigned at Not on file Legal Sex Male 8:57 AM CDT Gender Identity Not on file Sexual Orientation Not on file Last Filed Vital Signs Vital Sign Reading Time Taken Comments Blood Pressure 154/93 03/02/2024 11:40 AM GAS OR WATER METER INSTALLER Pulse 88 03/02/2024 11:36 AM GAS OR WATER METER INSTALLER Temperature 36.8 C (98.2 F) 03/02/2024 11:36 AM GAS OR WATER METER INSTALLER Respiratory Rate 15 03/02/2024 11:3 6 AM GAS OR WATER METER INSTALLER Oxygen Saturation 96% 03/02/2024 11: 36 AM GAS OR WATER METER INSTALLER Inhaled Oxygen Concentration - - Weight 78.8 kg (173 lb 12.8 oz) 024 11:36 AM GAS OR WATER METER INSTALLER Height 170.2 cm (5' 7) 02/10/2024 3:11 PM CDT Body Mass Index 27.22 02/10/2024 3:11 PM CDT Plan of Treatment Upcoming Encounters Date Type Department Care Team (Late st Contact Info) Description 11/28/2024 3:45 PM CDT Office Visit [facility] Oncology and Hematology - Ismael [address] [facility] [address] [place] [address] Isidro Bertrand MD [address] [facility] [address] [place] [address] Health Maintenance Due Date Last Done Comments DIABETES ANNUAL FOOT EXAM 1975 DIABETES ANNUAL RETINAL EXAM 1975 DIABETES MICROALBUMIN ANNUAL SCREEN 1975 LDL CHOLESTEROL ANNUAL 1975 DTAP/TDAP/TD VACCINES (1 - Tdap) 1976 PNEUMOCOCCAL VACCINE 50+ YEARS (1 of 2 - PCV) 03/15/19 76 COLORECTAL SCREENING 2002 Colorectal Cancer Screening 2002 FIT-DNA Q 3 years 2002 FIT/FOBT Q 1 year 2002 Flex Sig/CT Colonography Q 5 years 2002 ZOSTER VACCINE (1 of 2) 2007 DIABETES HBA1C Q 6 MONTHS 09/23/2019 03/24/2019 [place] Prev entative Visit/Annual Wellness Visit 04/20/2024 INFLUENZA VACCINE (#1) 2024 RSV VACCINE (60+ or ) (1 - 1-dose 75+ series) 2032 Abdominal Aortic Aneurysm (AAA) Screening Completed 02/23/2024 Procedures Procedure Name Priority Date/Time Associated Diagnosis Comments US ABDOMEN COMPLETE Routine 02/23/2024 2:58 PM GAS OR WATER METER INSTALLER from Last 3 Months or Most Recently Relevant to Health Maintenance Results * US ABDOMEN COMPLETE (02/23/2024 2:58 PM GAS OR WATER METER INSTALLER) Anatomical Region Laterality Modality Abdomen Ultrasound us Isidro Bertrand MD US ORDERABLES Final Result from Last 3 Months or Most Recently Relevant to Health Maintenance Insurance [address] [id number] Care Teams Map Editor Relationship Specialty Start Date End Date Talib Gaytan MD [address] [place] [address] PCP - General Family Practice 02/11/24
--- OUTSIDE RECORDS SUMMARY | 2024-11-23 09:38 | XMS_ITS | Clinical Summary ---
Author Organization [facility] Address [address] [facility] [place] [address] Care Team Providers Care Auditor Name Role Phone Unavailable Primary Care Provider Unavailabl e Source Comments [facility] [employer],non-owned Affiliates and Associated Physician Practices is amultiple site organization consisting of ambulatory clinics and hospital sitesin [place], [place], [place] and [place]. This disclosure is being madepursuant to the Care Everywhere program and may not contain all information available regarding this patient. Last updated 18.[facility] [employer] Active Problems Problem Noted Date Diagnosed Date Cerebrovascular accident (CVA) 12/01/2018 Social History Tobacco Use Types Packs/Day Years Used Date Smoking Tobacco: Never Assessed Sex and Gender Information Value Date Recorded Sex Assigned at Not on file Legal Sex Male 1:23 PM CDT Gender Identity Not on file Sexual Orientation Not on file Plan of Treatment Health Maintenance Due Date Last Done Comments COLOGUARD (AGES 45-75) - COL ON CA SCREENING 1957 COLON MONITORING 1957 COLONOSCOPY - COLON CA SCREENING 1957 CT COLONOGRAPHY - COLON CA SCREENING 1957 Colorectal Cancer Screening 1957 FIT - COLON CA SCREENING 1957 FLEX SIG - COLON CA SCREENING 1957 LIPID TESTING 1957 HEPATITIS C SCREENING 03/11/1975 DTAP/TDAP/TD VACCINES (1 - Tdap) 1976 PNEUMOCOCCAL VACCINE 50+ (1 of 1 - PCV) 2007 ZOSTER VACCINE (1 of 2) 2007 COVID-19 VACCINE (1 - 2023-2 5 season) 2023 DEPRESSION SCREENING 04/20/2024 MEDICARE AWV CALENDAR YEAR 2024 INFLUENZA VACCINE (#1) 2024 Respiratory Syncytial Virus (RSV) Vaccine Pt: or over 60 yrs (1 - 1-dose 75+ series) 2032 HEPATITIS B VACCINE Aged Out No longe r eligible based on patient's age to complete this topic HIB VACCINE Aged Out No longer eligi ble based on patient's age to complete this topic HPV VACCINE Aged Out No longer eligi ble based on patient's age to complete this topic MENINGOCOCCAL (Group B) VACC INE SHARED DECISION-MAKING Aged Out No longer eligibl e based on patient's age to complete this topic MENINGOCOCCAL GROUPS A/C/Y/W VACCINE Aged Out No longer eligible b ased on patient's age to complete this topic Insurance [employer] SELF PAY NO INSURANCE Member Subscriber Plan / Payer (Ef fective for All Dates) Name:Juan Virk Member ID:Not on file Relation to Subscriber:Not on file Name:JUAN VIRK Subscriber ID:Not on file (Home) Address: [facility] [address] Payer ID:Not on file Group ID:Not on file Type:Self Pay Address: [place], [place] [address]
[2024-11-23 09:39] LABS: Hematocrit 43.4 % (42.0-52.0); Hemoglobin 14.5 g/dL (14.0-18.0); Immature Granulocyte Percent A 0.2 % (0-0.5); Immature Platelet Fraction Pct 6.0 % (0.9-11.2); Lymphocytes Absolute Auto 1.79 K/mm3 (0.9-3.2); Mean Corpuscular HGB Conc 33.4 g/dl (32-36); Mean Corpuscular Hemoglobin 30.3 pg (26-34); Mean Corpuscular Volume 90.6 fl (80-100); Nucleated Red Blood Cells Absolute Auto 0.000 K/mm3 (0.0-0.012); Nucleated Red Blood Cells Perc 0.0 % (0.0-0.2); Platelet Count Result 127 k/mm3 (150-375); Red Blood Count 4.79 M/mm3 (4.6-6.20); White Blood Count 4.4 K/mm3 (4.5-10.0)
[2024-11-23 10:30] LABS: Add Urine Microscopic? NO; Appearance Urine Clear (Clear); Glucose Urine UA Negative (Negative); Leukocyte Esterase Ur Negative LEU/UL (Negative); Nitrate Urine Negative (Negative); Specific Grav Ur 1.019 (1.001-1.035)
[2024-11-23 10:31] LABS: Alanine Aminotransferase 33 U/L (6-50); Albumin Level 4.6 g/dL (3.5-5.1); Alkaline Phosphatase 49 U/L (38-126); Anion Gap 7 mmol/L (4-12); Aspartate Amino Transferase 33 U/L (17-59); Bilirubin,Total 0.5 mg/dL (0.2-1.3); Blood Urea Nitrogen 16 mg/dL (9-20); Calcium 9.9 mg/dL (8.4-10.2); Carbon Dioxide 31 mmol/L (22-30); Chloride 101 mmol/L (98-107); Cholesterol 205 mg/dL (0-200); Estimated Glomerular Filt Rate > 60; Glucose 135 mg/dL (65-110); HDL Direct 78 mg/dL; Potassium 5.6 mmol/L (3.4-5.0); Sodium 139 mmol/L (137-145); Total Protein 7.6 g/dL (6.3-8.2); Triglycerides 64 mg/dL (<150)
[2024-11-23 10:47] LABS: MALB Creatinine Ratio 34.4 mg/g (0-30)
[2024-11-23 11:00] LABS: Hemoglobin A1C 6.2 % (<5.7)
[2024-11-23 11:06] LABS: Thyroid Stimulating Hormone 3.460 uIU/mL (0.465-4.680)
== END 2024-11-23 09:16 | disposition home or self-care (01) ==
LOC: ANHLAB 09:16
PROVIDERS: PCP Family Medicine; Visit Provider Internal Medicine Hematology & Oncology
DX: E55.9 Vitamin D deficiency, unspecified (principal); E11.9 Type 2 diabetes mellitus without complications; D69.6 Thrombocytopenia, unspecified; E78.5 Hyperlipidemia, unspecified; E03.9 Hypothyroidism, unspecified; I10 Essential (primary) hypertension; I25.10 Atherosclerotic heart disease of native coronary artery without angina pectoris; R79.89 Other specified abnormal findings of blood chemistry; R53.81 Other malaise
CPT/HCPCS: 36415; 80053; 80061; 81003; 82043; 83036; 84443; 85025; 85055